=== PATIENT | male | born 1950 | race Caucasian/White ===

== ENCOUNTER → 2017-04-07 | Outpatient (CLI) | payer MEDICARE, BC ==
--- NOTE | 2017-04-07 17:41 | US ---
EXAMINATION TYPE: US kidneys/renal and bladder DATE OF EXAM: 04/07/2017 COMPARISON: US 2011 CLINICAL HISTORY: R10.9 Unspecified abd pain; Intermittent right flank pain; microscopic hematuria pe r patient. EXAM MEASUREMENTS: Right Kidney: 11.7 x 6.4 x 5.6 cm Left Kidney: 11.4 x 5.5 x 6.4 cm Post Void Residual Volume: 78.8 mL Right Kidney: mid medial hypoechoic area, possibly cystic with posterior enhancement =2.5 x 1.7 x 1.8 cm; lower pole cortical cyst = 1.0 x 0.7 x 0.7cm. Left Kidney: lobular cortex with hyperechoic oval mass noted mid cortex ( possible angiomyolipoma) = 2.1 x 2.1 x 1.9cm; lower pole cortical cyst = 1.2 x 1.0 x 0.9cm. Bladder: wnl Bilateral Jets seen: Yes Normal Post Void Residual: no, as is > 50.0ml IMPRESSION: 1. Hyperechoic lesion left kidney could reflect angiomyolipoma however consider CT correlation. 2. Renal cystic lesions.
== END | disposition home or self-care (01) ==
LOC: RADUSWWP 16:07
PROVIDERS: ATTEND Family Medicine
DX: N28.9 Disorder of kidney and ureter, unspecified (principal); R10.9 Unspecified abdominal pain
CPT/HCPCS: 76770

== ENCOUNTER → 2017-04-15 | Outpatient (CLI) | payer MEDICARE, BC ==
--- NOTE | 2017-04-15 08:41 | CT ---
EXAMINATION TYPE: CT abdomen wo con DATE OF EXAM: 04/15/2017 COMPARISON: Correlation ultrasound kidneys 04/07/2017 HISTORY: 66-year-old male with right flank pain, abn US TECHNIQUE: Contiguous axial scanning of the abdomen without IV contrast. Coronal and sagittal reconst ructions performed. CT DLP: 606 mGycm Automated exposure control for dose reduction was used. FINDINGS: Heart is normal size without pericardial effusion. Coronary vessel calcifications are present in buffy rkable for coronary artery disease. Small hiatal hernia. Lung bases clear without pleural effusion. Noncontrast appearance of the liver, adrenal glands, spleen, and pancreas show no gross anomaly. Ther e is some fat interposed at the uncinate process incidentally noted. Lobulated contour to both kidneys. The dominant mid pole cyst within the right kidney seen on ultraso und is not clearly demonstrated on noncontrast CT. Within the left kidney, there is an exophytic 1.7 cm lesions showing fluid attenuation posterior uppe r to midpole, suspected cyst and a subcentimeter hypodensity at the lower pole, also likely a cyst. I ndeterminate 2.0 cm soft tissue density lesion lateral midpole likely corresponds to the question ech ogenic lesion on ultrasound. No internal fat density is seen to suggest a fatty AML. No dilated small bowel, free fluid, or free air. No mesenteric or retroperitoneal lymphadenopathy. Small umbilical hernia. Normal appendix. Colonic diverticulosis with mild to moderate overall stool burden. Mild atherosclerotic calcifications within the infrarenal abdominal aorta without aneurysm. Bones: Degenerative changes at the SI joints and lower lumbar spine. Endplate spondylosis at the lowe r thoracic spine and thoracolumbar junction. IMPRESSION: 1. A 2.0 CM SOFT TISSUE DENSITY LESION MID LEFT KIDNEY SEEMS TO CORRESPOND TO THE QUESTIONED ECHOGENI C LESION ON ULTRASOUND. DIFFERENTIAL CONSIDERATIONS INCLUDE COMPLICATED CYST, LIPID POOR AML, AND RCC . FURTHER EVALUATION WITH KIDNEY MRI RECOMMENDED. 2. MRI CAN CONCURRENTLY EVALUATE THE RIGHT MIDPOLE LESION SEEN ON ULTRASOUND. THIS HAS NO CLEAR CORRE LATE ON NONCONTRAST CT. 2. COLONIC DIVERTICULOSIS, SMALL HIATAL HERNIA, AND SMALL FATTY UMBILICAL HERNIA.
== END | disposition home or self-care (01) ==
LOC: RADCTMAIN 07:11
PROVIDERS: ATTEND Urology
DX: K57.30 Diverticulosis of large intestine without perforation or abscess without bleeding (principal); N28.89 Other specified disorders of kidney and ureter; K44.9 Diaphragmatic hernia without obstruction or gangrene; K42.9 Umbilical hernia without obstruction or gangrene
CPT/HCPCS: 74150

== ENCOUNTER → 2017-05-03 | Outpatient (CLI) | payer MEDICARE, BC ==
--- NOTE | 2017-05-03 10:39 | XR ---
EXAMINATION TYPE: XR chest 2V DATE OF EXAM: 05/03/2017 COMPARISON: 07/28/1711 HISTORY: Shortness of breath TECHNIQUE: Frontal and lateral views of the chest are obtained. FINDINGS: Scattered senescent parenchymal changes noted. Hyperinflation compatible with COPD. No evidence for infiltrate. No evidence for atelectasis. Heart size is stable. Mediastinal structures are stable and grossly unremarkable. No evidence for hilar prominence. Degenerative changes dorsal spine. IMPRESSION: 1. No evidence for acute pulmonary disease.
== END ==
LOC: RADXRMAIN 09:46
PROVIDERS: ATTEND Otolaryngology
DX: R05 Cough (principal)
CPT/HCPCS: 71020

== ENCOUNTER → 2017-05-12 | Outpatient (CLI) | payer MEDICARE, BC ==
--- NOTE | 2017-05-12 08:55 | CT ---
EXAMINATION TYPE: CT sinus wo con DATE OF EXAM: 05/12/2017 COMPARISON: NONE HISTORY: Chronic sinusitis CT DLP: [address] of the paranasal sinuses was performed in the axial and coronal planes. Bone and soft tissue settings are submitted. The paranasal sinuses demonstrate normal aeration and development. There is mucosal thickening involving the maxillary sinuses right greater than left, scattered ethmoi d air cells, right frontal sinus and sphenoid sinus. No air-fluid levels are detected. The osteal meatal units are patent bilaterally. The nasal septum is deviated from right to left. Incidental right-sided middle turbinate sylvia bullo sa noted. No bony destructive changes are seen within the field of view. IMPRESSION: 1. Mild chronic pansinusitis. 2. Nasal septal deviation.
== END ==
LOC: RADCTMAIN 08:35
PROVIDERS: ATTEND Otolaryngology
DX: J32.4 Chronic pansinusitis (principal); J34.2 Deviated nasal septum; J38.01 Paralysis of vocal cords and larynx, unilateral
CPT/HCPCS: 70486

== ENCOUNTER → 2017-05-20 | Outpatient (CLI) | payer MEDICARE, BC ==
[2017-05-20 13:50] LABS: Non-African American GFR(MDRD) >60 (>60 ml/min/1.73 sqM)
== END | disposition home or self-care (01) ==
LOC: LABWHC1 13:17
PROVIDERS: ATTEND Urology
DX: D41.02 Neoplasm of uncertain behavior of left kidney (principal)
CPT/HCPCS: 36415; 82565

== ENCOUNTER → 2017-05-21 | Outpatient (CLI) | payer MEDICARE, BC ==
--- NOTE | 2017-05-21 15:40 | MR ---
EXAMINATION TYPE: MR kidney wo/w con DATE OF EXAM: 05/21/2017 COMPARISON: CT 04/15/2017 and ultrasound 04/07/2017 HISTORY: 67-year-old male with left renal mass Technique: Multiplanar, multisequence images of the abdomen were obtained before and after administra tion of 20 mL intravenous MultiHance gadolinium contrast. FINDINGS: By 04/07/2017 ultrasound: Hypoechoic right mid pole renal lesion 2.5 cm. Echogenic left midpole renal lesion 2.1 cm. Current MRI: Tiny hiatal hernia. Opposed phase T1 weighted sequences show no evidence for fatty infiltration of the liver. Gallbladder, adrenal glands, spleen, and pancreas show no gross abnormality. There is an 8 mm island of fat in the pancreatic head region. No upper abdominal ascites, lymphadenopathy, or gross bowel abnormality. Mild scattered colonic diver ticuli are present. Scattered small cortical cyst on both sides measuring up to 1.6 cm in the posterior lower pole left k idney. At the right midpole, no lesion is identified. There is lobulated bilateral renal cortices which may have simulated a lesion. At the left midpole, there is a heterogeneous T2 iso to hypointense and T1 hypointense lesion measuri ng 2.2 cm. There is some internal curvilinear high T2 signal present. Postcontrast sequences show het erogeneous internal enhancement. Small fatty umbilical hernia. IMPRESSION: Solid, heterogeneously enhancing 2.2 cm left midpole renal mass. This lesion does not show any macros copic fat or homogeneous hypervascularity to suggest either a conventional AML or lipid poor AML. Hardik ar cell RCC cannot be excluded on the basis of this exam.
== END | disposition home or self-care (01) ==
LOC: RADMRIMAIN 12:29
PROVIDERS: ATTEND Urology
DX: N28.89 Other specified disorders of kidney and ureter (principal); D41.02 Neoplasm of uncertain behavior of left kidney
CPT/HCPCS: 74183; A9577

== ENCOUNTER 2017-07-01 09:34 | Day surgery (SDC) | payer MEDICARE, BC ==
[2017-06-24 13:47] VITALS: BMI 29.2
[~2017-07-01 09:34] MED LIST: DEXAMETHASONE SOD PHOSPHATE 10 MG/ML 1 ML VIAL IV ONE; DEXAMETHASONE SOD PHOSPHATE 4 MG/ML 1 ML VIAL IV ONE; FAMOTIDINE 20 MG/2 ML VIAL IV ONE; LIDOCAINE 1% 20 ML VIAL (10MG/ML) FOR IV START INTRADERMA PRN; ONDANSETRON 4 MG/2 ML VIAL IVP ONE; SCOPOLAMINE 1.5MG/72HR PATCH TRANSDERM ONE; ceFAZolin 2 GM in SODIUM CHLORIDE 0.9% 100 ML IVPB ONE
[2017-07-01] MEDS: OXYMETAZOLINE 0.05% NASL SPRAY 1 SPRAY BOTTLE NASAL ONE ×6 (10:44→11:07)
[2017-07-01] MEDS: LACTATED RINGERS 1,000 ML IV SCH ×2 (10:57→11:41)
[2017-07-01 11:00] LABS: Glucose,Whole Blood 122 mg/dL (75-99)
[2017-07-01] MEDS ORDERED: EPINEPHrine 1 MG/ML (MDV) 30 ML VIAL SQ ONE ×2 (11:01)
[2017-07-01 11:09] LABS: Basophils % (A) 0 %; CH 30.9; Eosinophils # (A) 0.1 k/uL (0-0.7); Eosinophils % (A) 1 %; HCT 42.7 % (39.0-53.0); HDW 2.83; HGB 15.4 gm/dL (13.0-17.5); Luc # (Auto) 0.09; Luc % (Auto) 1; Lymphocytes # (A) 1.4 k/uL (1.0-4.8); Lymphocytes % (A) 11 %; MCH 31.1 pg (25.0-35.0); MCV 86.2 fL (80.0-100.0); Mean Platelet Volume 6.9; Monocytes # (A) 0.4 k/uL (0-1.0); Monocytes % (A) 4 %; Neutrophils # (A) 9.9 k/uL (1.3-7.7); Neutrophils % (A) 83 %; RBC 4.95 m/uL (4.30-5.90); RDW 13.1 % (11.5-15.5); WBC 11.9 k/uL (3.8-10.6); WBC (Perox) 10.89
[2017-07-01 11:22] LABS: Anion Gap 12 mmol/L; Blood Urea Nitrogen 18 mg/dL (9-20); Calcium 9.6 mg/dL (8.4-10.2); Carbon Dioxide 29 mmol/L (22-30); Chloride 99 mmol/L (98-107); Glucose 121 mg/dL (74-99); Non-African American GFR(MDRD) >60 (>60 ml/min/1.73 sqM); Potassium 3.1 mmol/L (3.5-5.1); Sodium 140 mmol/L (137-145)
[2017-07-01] MEDS ORDERED: DEXAMETHASONE SOD PHOS (MDV) 100 MG/10 ML VIAL ONE (11:41)
[2017-07-01] MEDS ORDERED: PROPOFOL 10 MG/ML 20 ML VIAL IV ONE (11:41)
[2017-07-01] MEDS ORDERED: LIDOCAINE 1% INJ 10MG/ML (20 ML MDV) ONE (11:41)
[2017-07-01] MEDS ORDERED: MIDAZOLAM 2 MG/2 ML VIAL ONE (11:41)
[2017-07-01] MEDS ORDERED: SUCCINYLCHOLINE CHLORIDE 100 MG/5 ML SYR IV ONE (11:41)
[2017-07-01] MEDS ORDERED: fentaNYL (PF) 50 MCG/ML 2 ML AMP ONE (11:41)
[2017-07-01] MEDS ORDERED: LIDOCAINE 2%-EPI 1:100,000 20 ML VIAL SQ ONE (12:17)
[2017-07-01] MEDS ORDERED: BUPIVACAINE (PF) 0.25% 30 ML VIAL SQ ONE (12:18)
[2017-07-01 13:26] VITALS: RESP 16; TEMP 97.1
--- NOTE | 2017-07-01 13:44 | P.OP ---
Date of Procedure: 07/01/17 Preoperative Diagnosis: Hoarseness Chronic pansinusitis Deviated nasal septum Right middle turbinate sylvia bullosa Postoperative Diagnosis: Same Procedure(s) Performed: Direct microscopic laryngoscopy and biopsy Bilateral functional endoscopic sinus surgery Resection of right middle turbinate sylvia bullosa Septoplasty Implants: Anesthesia: GETA Surgeon: Julio Cesar Timmons Estimated Blood Loss (ml): 20 Pathology: other (Right vocal cord and sinonasal) Condition: stable Disposition: PACU Indications for Procedure: This patient presented to the office today after a video stroboscopy with persistent hoarseness. The patient has had previous radiation therapy. Is been on multiple antibiotics is a chronic sinusitis facial pain and pressure anosmia congestion discolored drainage CAT scan shows chronic pansinusitis with the severe left septal deviation and large right sylvia bullosa. Evaluation of the larynx under microscopic visualization was recommended. Bilateral functional endoscopic sinus surgery and septoplasty was also recommended in light of this continued sinus issues along with resection of the right middle turbinate sylvia bullosa Operative Findings: Patient was found have a massive right middle turbinate sylvia bullosa a deviated nasal septum to the left that was obstructive and sinus disease and all sinuses. Vocal cord examination reveals evidence of previous radiation therapy and chronic laryngitis. The patient was found to have a large vessel on the right posterior vocal cord there was problematic. Description of Procedure: Preoperatively the patient had her consent reviewed. All risks, benefits, and alternative therapies were discussed and all questions were answered. The patient was informed of the procedure and a confirmatory fashion and was in agreement to proceed forward. In the operating room a timeout was performed and all issues were reviewed with the operating room staff. The patient underwent a general inhalation anesthetic and intubated by the department of anesthesia and also monitored throughout the entire case by the department of anesthesia. A functioning IV line was in place. This patient was intubated with a #5 REAL ESTATE ADMINISTRATOR tube. Tooth guard was placed in a Jako laryngoscope was placed into the patient's mouth with care to avoid any trauma to the lips teeth gums and tongue. The entire Aarti and hypopharynx was evaluated including the base of tongue Raleigh cords vallecula lateral pharynx hypopharynx postcricoid space ventral etc. It was placed on suspension on a Lewy and the vocal cords were visualized. There was evidence of chronic laryngitis evidence of postnasal drainage there is also evidence of a large vessel the posterior vocal surface which was removed. Patient tolerated this well no other pathology was noted scope and instrumentation was removed. The patient was positioned in the supine position with slight reverse Trendelenburg. Preoperatively she had Afrin nasal spray. We then injected the septum, lateral nasal wall, turbinates with lidocaine 1% with epinephrine 1 100, 000. Approximately 10 minutes were allowed wait for full vasoconstrictive effects to take place. A caudal incision was made over the caudal portion of the left septum down to the mucoperichondrium. A mucoperichondrial flap was developed with use of tunnels inferiorly and superiorly. We identified the deviation and with use of crosshatching incisions and removal of some redundant strips of septal cartilage , the septum was placed back in the midline in excellent position relieving this patient of this deviated nasal septum. We closed the incision with a 40 rapid Vicryl and a quilting stitch was used to reapproximate the septal flap. The septum was corrected and a swing door type fashion. The septum was sutured fixated to the vomer area and groove with use of a 40 rapid Vicryl. Attention was then paid to the middle turbinates which were brought medial. The uncinate process was visualized and reflected forward with a Irving probe. With the use of an endoscope utilizing 0 30 and 90 we perform this procedure and utilize this endoscope on a video camera throughout the entire procedure. This was with use of a Cavanaugh jennie scope. We then took down the uncinate process with a pediatric backbiter and a microdebrider. I also resected the right middle turbinate sylvia bullosa laterally which was quite large and obstructive. We did this with a microdebrider and a straight boss. After the uncinate process was removed the maxillary sinuses were opened widely with use of a straight boss. We open the maxillary sinuses widely and into the maxillary sinuses with endoscopic visualization. Diseased tissue was removed from the maxillary sinuses bilaterally and the sinuses were opened bilaterally. After the maxillary sinuses were opened and diseased tissue was removed attention was then paid to the ethmoid bulla. From a medial to lateral position we took down the ethmoid bulla. We identified the roof of the maxillary sinus and the inferior attachment of the superior turbinate and then took down the basal lamella and into the posterior ethmoid air cells. We did a total ethmoidectomy with use of an up-biting boss. Excellent results were obtained. Diseased tissue was found in the ethmoid sinuses and removed. We then entered the sphenoid sinus underneath the inferior attachment of the superior turbinate. The sphenoid sinus was opened with the microdebrider and diseased tissue was removed from each sphenoid sinus. This was also done with use of endoscopic visualization. Attention was then paid to the frontal sinus where the frontal sinuses were opened with balloon assistance. We entered the frontal sinuses bilaterally we explored the frontal sinuses bilaterally, and we remove diseased tissue from the frontal sinuses bilaterally. After all sinuses were opened and all sinuses explored and all sinuses had diseased tissue removed , Xerogel was placed under each middle turbinate to prevent lateralization. Excellent hemostasis was obtained throughout the entire case and very low blood was noted. The skull base and orbital snowden looked good. We reinspected the sinonasal region and no bleeding was encountered. The patient was then taken to postanesthesia recovery in excellent condition. A follow-up is scheduled for next week. The patient is to contact me if there is any problems or issues. Bilateral nasal packing was placed
[2017-07-01] MEDS: HYDROmorphone 1 MG/ML 1 ML SYRINGE IVP PRN ×4 (13:59→14:53)
[2017-07-01] MEDS: ENALAPRILAT 1.25 MG/ML 1 ML VIAL IVP ONE ×2 (14:02→14:31)
[2017-07-01] MEDS: LABETALOL SYRINGE 5 MG/ML IVP ONE ×3 (14:03→14:45)
[2017-07-01] MEDS ORDERED: HYDROcodone/APAP 5-325MG 1 EACH TAB PO ONE (15:37)
[2017-07-01 16:38] VITALS: BP 128/81; PULSE 64
== END 2017-07-01 17:10 | disposition home or self-care (01) ==
LOC: OR 09:34
PROVIDERS: ATTEND Otolaryngology
DX: J32.4 Chronic pansinusitis (principal); J34.2 Deviated nasal septum; R43.0 Anosmia; R49.0 Dysphonia; Z87.891 Personal history of nicotine dependence; Z92.3 Personal history of irradiation; K21.9 Gastro-esophageal reflux disease without esophagitis; E78.00 Pure hypercholesterolemia, unspecified; I10 Essential (primary) hypertension; Z85.21 Personal history of malignant neoplasm of larynx; Z79.52 Long term (current) use of systemic steroids; Z79.899 Other long term (current) drug therapy; E78.5 Hyperlipidemia, unspecified
CPT/HCPCS: 93005; 88305; 80048; 85025; 88300; 30520; 31267; 31255; 31288; 31276; 31535; J0171; J2250; J0690; J2405; J2001; J3010; J1170; J1100; J0330; J2704

== ENCOUNTER → 2018-02-10 | Outpatient (CLI) | payer MEDICARE, BC ==
[2018-02-10 08:30] LABS: HCT 39.9 % (39.0-53.0); HGB 14.1 gm/dL (13.0-17.5); MCH 29.8 pg (25.0-35.0); MCHC 35.3 g/dL (31.0-37.0); MCV 84.5 fL (80.0-100.0); Mean Platelet Volume 7.3; Platelet Count 291 k/uL (150-450); RBC 4.72 m/uL (4.30-5.90); RDW 13.2 % (11.5-15.5)
[2018-02-10 08:56] LABS: Albumin 4.6 g/dL (3.5-5.0); Calcium 9.9 mg/dL (8.4-10.2); Potassium 3.4 mmol/L (3.5-5.1); Total Bilirubin 0.4 mg/dL (0.2-1.3); Total Protein 7.5 g/dL (6.3-8.2)
== END | disposition home or self-care (01) ==
LOC: LABWHC1 08:06
PROVIDERS: ATTEND Urology
DX: C64.2 Malignant neoplasm of left kidney, except renal pelvis (principal)
CPT/HCPCS: 36415; 80053; 85027

== ENCOUNTER → 2018-04-11 | Outpatient (CLI) | payer MEDICARE, BC ==
[2018-04-11 10:22] LABS: ALT 49 U/L (21-72); AST 33 U/L (17-59); Cholesterol 188 mg/dL (<200); HDL Cholesterol 47 mg/dL (40-60); LDL Cholesterol,Calculated 120 mg/dL (0-99); Triglycerides 103 mg/dL (<150)
== END | disposition home or self-care (01) ==
LOC: LABWHC1 09:03
PROVIDERS: ATTEND Internal Medicine Cardiovascular Disease
DX: E78.2 Mixed hyperlipidemia (principal)
CPT/HCPCS: 36415; 80061; 84450; 84460

== ENCOUNTER → 2018-06-24 | Outpatient (CLI) | payer MEDICARE, BC ==
[2018-06-24 08:55] LABS: Basophils % (A) 1 %; Eosinophils # (A) 0.2 k/uL (0-0.7); Eosinophils % (A) 3 %; HCT 42.8 % (39.0-53.0); HGB 14.6 gm/dL (13.0-17.5); Lymphocytes # (A) 1.9 k/uL (1.0-4.8); Lymphocytes % (A) 25 %; MCH 29.3 pg (25.0-35.0); MCHC 34.2 g/dL (31.0-37.0); MCV 85.6 fL (80.0-100.0); Mean Platelet Volume 7.1; Monocytes # (A) 0.5 k/uL (0-1.0); Monocytes % (A) 6 %; Neutrophils # (A) 4.8 k/uL (1.3-7.7); Neutrophils % (A) 63 %; Platelet Count 275 k/uL (150-450); RDW 12.9 % (11.5-15.5); WBC 7.6 k/uL (3.8-10.6)
[2018-06-24 09:55] LABS: Albumin 4.5 g/dL (3.5-5.0); Calcium 9.9 mg/dL (8.4-10.2); Potassium 3.4 mmol/L (3.5-5.1); Total Bilirubin 0.9 mg/dL (0.2-1.3); Total Protein 7.6 g/dL (6.3-8.2)
[2018-06-24 10:25] LABS: PSA Annual Screen 3.96 ng/mL (0.00-4.00)
[2018-06-24 19:46] LABS: Hemoglobin A1C 6.1 % (4.0-6.0)
== END | disposition home or self-care (01) ==
LOC: LABWHC1 08:33
PROVIDERS: ATTEND Family Medicine
DX: Z00.01 Encounter for general adult medical examination with abnormal findings (principal); E78.5 Hyperlipidemia, unspecified; Z12.5 Encounter for screening for malignant neoplasm of prostate
CPT/HCPCS: 80053; 82550; 85025; 83036; 36415; G0103

== ENCOUNTER → 2018-09-23 | Outpatient (CLI) | payer MEDICARE, BC ==
[2018-09-23 15:26] LABS: HCT 41.3 % (39.0-53.0); HGB 14.2 gm/dL (13.0-17.5); MCH 30.1 pg (25.0-35.0); MCHC 34.5 g/dL (31.0-37.0); MCV 87.2 fL (80.0-100.0); Mean Platelet Volume 6.9; Platelet Count 325 k/uL (150-450); RBC 4.74 m/uL (4.30-5.90); RDW 12.4 % (11.5-15.5); WBC 9.5 k/uL (3.8-10.6)
[2018-09-24 02:53] LABS: Albumin 4.9 g/dL (3.80-4.90); Albumin/Globulin Ratio 2.04 (1.20-2.10); Anion Gap 12.8 mmol/L (4.00-12.00); Calcium 10.2 mg/dL (8.7-10.3); Carbon Dioxide 27.2 mmol/L (21.6-31.8); Globulin 2.4 g/dL (2.1-3.7); Potassium 3.1 mmol/L (3.5-5.5); Total Bilirubin 0.8 mg/dL (0.3-1.2); Total Protein 7.3 g/dL (6.2-8.2)
[2018-09-27 04:57] LABS: Hemoglobin A1C 6.1 % (4.0-6.0)
== END | disposition home or self-care (01) ==
LOC: LABWHC1 15:06
PROVIDERS: ATTEND Urology
DX: C64.9 Malignant neoplasm of unspecified kidney, except renal pelvis (principal); R97.20 Elevated prostate specific antigen [PSA]
CPT/HCPCS: 36415; 80053; 83036; 84153; 85027

== ENCOUNTER → 2018-09-30 | Outpatient (CLI) | payer MEDICARE, BC ==
--- NOTE | 2018-09-30 17:09 | US ---
EXAMINATION TYPE: US kidneys/renal and bladder DATE OF EXAM: 09/30/2018 COMPARISON: MRI kidney May 21, 2017. CT abdomen April 15, 2017. CLINICAL HISTORY: Renal CA. Left renal CA resected 2017 per patient. EXAM MEASUREMENTS: Right Kidney: 11.2 x 7.2 x 5.4cm Left Kidney: 11.1 x 5.3 x 5.7cm Post Void Residual Volume: 38.7ml Right Kidney: lobular cortex is seen; multiple renal cysts are seen with largest at inferior cortex = 1.0 x 0.8 x 0.7cm; small hypoechoic fluid area seen laterally adjacent to cortex may be sonographic sweat sign and suggests renal failure. Left Kidney: hyperechoic areas seen mid cortex may be scar tissue from 2017 Renal Cell CA resection; inferior pole simple cyst = 1.4 x 1.1 x 0.8cm Bladder: wnl Bilateral Jets seen: yes Normal Post Void Residual: yes There is no evidence for hydronephrosis at this point in time. Lobular cortex right kidney is redemon strated. A few tiny simple appearing cysts are redemonstrated bilaterally. Focal irregularity with sh adowing laterally likely reflects scarring mid to lower pole level left kidney at area of prior enhan cing mass. No nephrolithiasis is seen. The urinary bladder is well-distended. Bilateral ureteral je ts are seen. Small amount of residual urine is present after voiding, calculated volume is just under 40 cc. IMPRESSION: No suspicious new solid or cystic masses in either kidney on ultrasound images saved.
== END ==
LOC: RADUSWWP 16:08
PROVIDERS: ATTEND Urology
DX: C64.9 Malignant neoplasm of unspecified kidney, except renal pelvis (principal)
CPT/HCPCS: 76770

== ENCOUNTER → 2018-10-14 | Outpatient (CLI) | payer MEDICARE, BC ==
[2018-10-14 17:25] LABS: Albumin 4.8 g/dL (3.80-4.90); Albumin/Globulin Ratio 2.18 (1.20-2.10); Anion Gap 11.5 mmol/L (4.00-12.00); Calcium 9.9 mg/dL (8.7-10.3); Carbon Dioxide 29.5 mmol/L (21.6-31.8); Globulin 2.2 g/dL (2.1-3.7); LDL Cholesterol,Calculated 88.8 mg/dL (0.0-131.0); Potassium 3.2 mmol/L (3.5-5.5); Total Bilirubin 0.9 mg/dL (0.2-1.2); Uric Acid 10.8 mg/dL (3.7-8.7); VLDL Calculation 19.2 mg/dL (5.00-40.00)
== END ==
LOC: LABWHC1 09:19
PROVIDERS: ATTEND Nurse Practitioner Adult Health
DX: E78.5 Hyperlipidemia, unspecified (principal); M10.9 Gout, unspecified; R73.9 Hyperglycemia, unspecified
CPT/HCPCS: 36415; 80053; 80061; 82550; 84550

== ENCOUNTER → 2019-07-05 | Outpatient (CLI) | payer MEDICARE, BC ==
[2019-07-05 08:31] LABS: Basophils # (A) 0.1 k/uL (0-0.2); Basophils % (A) 1 %; Eosinophils # (A) 0.1 k/uL (0-0.7); Eosinophils % (A) 2 %; HGB 14.8 gm/dL (13.0-17.5); Lymphocytes % (A) 27 %; MCH 30.2 pg (25.0-35.0); MCHC 33.8 g/dL (31.0-37.0); MCV 89.4 fL (80.0-100.0); Mean Platelet Volume 7.4; Monocytes # (A) 0.5 k/uL (0-1.0); Monocytes % (A) 7 %; Neutrophils # (A) 4.4 k/uL (1.3-7.7); Neutrophils % (A) 61 %; Platelet Count 331 k/uL (150-450); RBC 4.92 m/uL (4.30-5.90); RDW 14.3 % (11.5-15.5); WBC 7.3 k/uL (3.8-10.6)
[2019-07-05 16:17] LABS: T4, Free (Free Thyroxine) 1.4 ng/dL (0.80-1.80)
[2019-07-05 16:37] LABS: African American GFR (CKD) 71.6 (60.0-200.0); Albumin/Globulin Ratio 2.27 (1.60-3.17); BUN/Creat Ratio 13.33 Ratio (12.00-20.00); Calcium 10.3 mg/dL (8.7-10.3); Chol/HDL Ratio 3.65; Globulin 2.2 g/dL (1.6-3.3); LDL Cholesterol,Calculated 106.8 mg/dL (0.0-131.0); Potassium 4.4 mmol/L (3.5-5.5); Total Bilirubin 0.8 mg/dL (0.2-1.2); Total Protein 7.2 g/dL (6.2-8.2); Uric Acid 7.5 mg/dL (3.7-8.7); VLDL Calculation 23.2 mg/dL (5.00-40.00)
== END | disposition home or self-care (01) ==
LOC: LABWHC1 07:44
PROVIDERS: ATTEND Nurse Practitioner Adult Health
DX: I10 Essential (primary) hypertension (principal); E78.5 Hyperlipidemia, unspecified; M10.9 Gout, unspecified
CPT/HCPCS: 36415; 80053; 80061; 82550; 84439; 84443; 84550; 85025

== ENCOUNTER → 2019-10-17 | Outpatient (CLI) | payer MEDICARE, BC ==
[2019-10-17 08:33] LABS: HCT 44.3 % (39.0-53.0); HGB 15.2 gm/dL (13.0-17.5); MCH 30.6 pg (25.0-35.0); MCHC 34.4 g/dL (31.0-37.0); MCV 88.8 fL (80.0-100.0); Mean Platelet Volume 7.5; Platelet Count 282 k/uL (150-450); RBC 4.99 m/uL (4.30-5.90); RDW 12.5 % (11.5-15.5); WBC 7.4 k/uL (3.8-10.6)
[2019-10-17 08:41] LABS: Albumin 5.1 g/dL (3.5-5.0); Potassium 3.7 mmol/L (3.5-5.1); Total Bilirubin 0.9 mg/dL (0.2-1.3); Total Protein 8.4 g/dL (6.3-8.2)
--- NOTE | 2019-10-17 11:00 | CT ---
EXAMINATION TYPE: CT abdomen wo/w con DATE OF EXAM: 10/17/2019 COMPARISON: Renal ultrasound dated 09/30/2018 and MRI of the kidneys dated 05/21/2017. HISTORY: Surgically resected left renal cell carcinoma in 2017. CT DLP: 1004.7 mGycm Automated exposure control for dose reduction was used. TECHNIQUE: Helical acquisition of images was performed from the lung bases through the top of iliac crest to include entire abdomen. CONTRAST: Performed with Oral Contrast and without and with IV Contrast, patient injected with 80 mL of Isovue 300. FINDINGS: LUNG BASES: No significant abnormality is appreciated. LIVER/GB: No cholelithiasis. PANCREAS: Again there is focal fatty infiltration in the uncinate process as seen on the examination of 2017, similar in appearance. SPLEEN: No significant abnormality is seen. ADRENALS: No significant abnormality is seen. KIDNEYS: Unenhanced images demonstrate surgical sutures along the left renal cortical margin at the m id pole. There is some fat perinephric fat stranding that is seen extending to Gerota's fascia howeve r there is no nodularity seen no abnormal enhancement. There is some central fat that appears encapsu lated on postcontrast image 36, possible perinephric fat stranding or focal fat necrosis. No fascial plane thickening. Small vessel is seen just cranial to this on postcontrast image 35. On delayed imag es there is subtle decreased enhancement of the cortex adjacent to the surgical sutures such as on im age 35 and 34. This may represent focal scarring and abnormal renal function secondary to resection. No abnormal enhancement or focal mass is seen. Emanating from the medial left upper pole there is a fluid attenuated 1.5 cm left renal cyst with no significant enhancement. Punctate 2 mm, too small to accurately characterize cortical renal lesion is seen in the left on postcontrast image 29. From the lower pole there is a 1.[address] No hydronephrosis. On the right there is an upper pole too small to accurately characterize lesion on image 24 and secon d similar lesion on image 32 as well as a renal cyst of the lower pole on image 38 measuring 1.1 cm. Lastly a too small to accurately characterize lesion is seen of the inferior pole on image 41. No hyd ronephrosis on the right. There is a lobulated contour the bilateral kidneys. No nephrolithiasis of e ither kidney. BOWEL: Few colonic diverticula without pericolonic fat stranding. Moderate degree colonic fecal felipe is. No dilated large or small bowel. Appendix is partially visualized and within normal limits. LYMPH NODES: No greater than 1 cm short axis lymph node in the abdomen. OSSEOUS STRUCTURES: No new suspicious osseous lesion. Mild to moderate degenerative changes of the s pine. FREE AIR: No free air is visualized. OTHER: Moderate calcific atheromatous changes seen in the abdominal aorta and its branches. Very smal l periumbilical fat filled hernia on image 47. IMPRESSION: 1. SURGICAL RESECTION OF THE LEFT MIDPOLE RENAL CELL CARCINOMA. NO SUSPICIOUS FINDINGS TO SUGGEST LOC AL RECURRENCE AT THIS TIME. NO NEW ADENOPATHY NOR SUSPICIOUS OSSEOUS LESIONS. 2. BILATERAL RENAL LESIONS, SOME OF WHICH ARE TOO SMALL TO ACCURATELY CHARACTERIZE AND OTHERS THAT RE PRESENT SIMPLE CYSTS.
== END | disposition home or self-care (01) ==
LOC: RADCTMAIN 07:56
PROVIDERS: ATTEND Urology
DX: C64.9 Malignant neoplasm of unspecified kidney, except renal pelvis (principal); N28.9 Disorder of kidney and ureter, unspecified; N28.1 Cyst of kidney, acquired
CPT/HCPCS: 80053; 85027; 74170; 36415; Q9967 ×2

== ENCOUNTER → 2020-06-19 | Outpatient (CLI) | payer MEDICARE, BC ==
[2020-06-19 16:55] LABS: Chol/HDL Ratio 3.16; LDL Cholesterol,Calculated 86.6 mg/dL (0.0-131.0); VLDL Calculation 19.4 mg/dL (5.00-40.00)
== END | disposition home or self-care (01) ==
LOC: LABWHC1 07:20
PROVIDERS: ATTEND Internal Medicine Cardiovascular Disease
DX: E78.2 Mixed hyperlipidemia (principal)
CPT/HCPCS: 36415; 80061; 84450; 84460

== ENCOUNTER → 2020-08-09 | Outpatient (CLI) | payer MEDICARE, BC ==
[2020-08-09 11:36] LABS: HCT 41.9 % (39.0-53.0); HGB 13.7 gm/dL (13.0-17.5); MCH 29.7 pg (25.0-35.0); MCHC 32.7 g/dL (31.0-37.0); MCV 90.8 fL (80.0-100.0); Mean Platelet Volume 7.2; Platelet Count 317 k/uL (150-450); RBC 4.61 m/uL (4.30-5.90); RDW 12.5 % (11.5-15.5); WBC 7.5 k/uL (3.8-10.6)
[2020-08-09 22:22] LABS: African American GFR (CKD) 64.5 (60.0-200.0); Albumin 4.9 g/dL (3.80-4.90); Albumin/Globulin Ratio 2.33 (1.60-3.17); Anion Gap 11.8 mmol/L (4.00-12.00); BUN/Creat Ratio 16.15 Ratio (12.00-20.00); Calcium 10.3 mg/dL (8.7-10.3); Carbon Dioxide 27.2 mmol/L (21.6-31.8); Globulin 2.1 g/dL (1.6-3.3); Non-African American GFR(CKD) 55.7 (60.0-200.0); Potassium 4.3 mmol/L (3.5-5.5)
[2020-08-09 22:30] LABS: Prostate Specific Antigen 4.5 ng/mL (0.0-4.5)
== END | disposition home or self-care (01) ==
LOC: LABWHC1 09:24
PROVIDERS: ATTEND Urology
DX: C64.9 Malignant neoplasm of unspecified kidney, except renal pelvis (principal); R97.20 Elevated prostate specific antigen [PSA]
CPT/HCPCS: 36415; 80053; 84153; 85027

== ENCOUNTER → 2020-08-16 | Outpatient (CLI) | payer MEDICARE, BC ==
--- NOTE | 2020-08-16 15:24 | CT ---
EXAMINATION TYPE: CT chest abdomen w con DATE OF EXAM: 08/16/2020 COMPARISON: CT abdomen 10/17/2019, 04/15/2017. HISTORY: Renal CA CT DLP: 750.2 mGycm. Automated Exposure Control for Dose Reduction was Utilized. CONTRAST: CT scan of the thorax and abdomen is performed with IV Contrast, patient injected with 100 mL of Isov ue 300. FINDINGS: LUNGS: Within the left upper lobe apex there is a 2.1 x 4.1 x 4.0 cm area of somewhat linear groundgl ass opacity associated with mild bronchiectasis, and bronchiectasis versus cystic change at the super ior aspect (4:9). Several other areas of groundglass opacities are seen, measuring up to 7 mm in the left upper lobe apex (4:6, 8:53), 11 mm in the right upper lobe (4:14), and 6 mm in the right lower l obe (4:39). There is no pleural effusion or pneumothorax seen. The tracheobronchial tree is patent. MEDIASTINUM/SOFT TISSUES: Right hilar lymph nodes measure up to 12 x 15 mm (3:27). No axillary or med iastinal lymphadenopathy greater than 1 cm. Cardiac size is normal. Calcified coronary artery disease . No pericardial effusion. No thoracic aortic aneurysm. LIVER: Normal. BILIARY SYSTEM: Normal. PANCREAS: Normal. SPLEEN: Normal. ADRENALS: Normal. KIDNEYS: Left interpolar postsurgical resection changes. No evidence of recurrent renal mass. Bilater al renal cysts and too small to characterize hypodense lesions redemonstrated. No hydronephrosis or p roximal hydroureter. BOWEL: No obstruction or thickening. PERITONEUM: No pneumoperitoneum. No free fluid. LYMPH NODES: No lymphadenopathy. VASCULATURE: No abdominal aortic aneurysm. MUSCULOSKELETAL: No aggressive osseous destructive lesions. Degenerative changes of the spine. IMPRESSION: 1. Postsurgical resection changes of the left interpolar kidney. No evidence of recurrent renal cell carcinoma. No metastatic disease of the abdomen. 2. Several scattered areas of groundglass opacities of the bilateral lungs. There is also a more conf luent somewhat linear 2.1 x 4.1 cm area of groundglass opacity of the left upper lobe apex with bronc hiectasis and/or cystic change. Findings are indeterminate. Infectious, inflammatory, and neoplastic etiologies are included in the differential. Recommend 3 month follow-up CT chest for stability/resol ution. 3. 1.2 cm right hilar adenopathy. Attention on follow-up imaging of the chest.
== END | disposition home or self-care (01) ==
LOC: RADCTMAIN 06:45
PROVIDERS: ATTEND Urology
DX: Z08 Encounter for follow-up examination after completed treatment for malignant neoplasm (principal); R91.8 Other nonspecific abnormal finding of lung field; R59.0 Localized enlarged lymph nodes; Z85.53 Personal history of malignant neoplasm of renal pelvis; Z98.890 Other specified postprocedural states
CPT/HCPCS: 71260; 74160; Q9967

== ENCOUNTER → 2021-01-30 | Outpatient (CLI) | payer MEDICARE, BC ==
[2021-01-30 14:45] LABS: Basophils # (A) 0.04 X 10*3/uL (0.00-0.10); Basophils % (A) 0.6 %; Eosinophils # (A) 0.16 X 10*3/uL (0.04-0.35); Eosinophils % (A) 2.5 %; HCT 39.2 % (39.6-50.0); Lymphocytes # (A) 1.86 X 10*3/uL (0.90-5.00); Lymphocytes % (A) 28.9 %; MCH 30.6 pg (27.0-32.0); MCHC 33.2 g/dL (32.0-37.0); MCV 92.2 fL (80.0-97.0); Mean Platelet Volume 10.2 fL (9.5-12.2); Monocytes % (A) 9.3 %; Neutrophils # (A) 3.75 X 10*3/uL (1.80-7.70); Neutrophils % (A) 58.4 %; Platelet Count 286 X 10*3/uL (140-440); RBC 4.25 X 10*6/uL (4.40-5.60); RDW 12.3 % (11.5-14.5); WBC 6.43 X 10*3/uL (4.50-10.00)
[2021-01-30 18:52] LABS: Ferritin 155.2 ng/mL (22.0-322.0); T4, Free (Free Thyroxine) 1.3 ng/dL (0.80-1.80)
[2021-01-30 19:12] LABS: % Iron Saturation 19.75 (15.00-50.00); African American GFR (CKD) 64.5 (60.0-200.0); Albumin 4.5 g/dL (3.80-4.90); Albumin/Globulin Ratio 2.37 (1.60-3.17); Anion Gap 10.3 mmol/L (4.00-12.00); BUN/Creat Ratio 11.54 Ratio (12.00-20.00); Calcium 9.6 mg/dL (8.7-10.3); Carbon Dioxide 28.7 mmol/L (21.6-31.8); Chol/HDL Ratio 3.44; Globulin 1.9 g/dL (1.6-3.3); LDL Cholesterol,Calculated 90.2 mg/dL (0.0-131.0); Magnesium 1.8 mg/dL (1.5-2.4); Non-African American GFR(CKD) 55.7 (60.0-200.0); Phosphorus 3.3 mg/dL (2.4-5.1); Potassium 3.6 mmol/L (3.5-5.5); Total Bilirubin 0.7 mg/dL (0.2-1.2); Total Protein 6.4 g/dL (6.2-8.2); Uric Acid 7.1 mg/dL (3.7-8.7); VLDL Calculation 19.8 mg/dL (5.00-40.00)
== END | disposition home or self-care (01) ==
LOC: LABWHC1 08:34
PROVIDERS: ATTEND Nurse Practitioner Adult Health
DX: E11.22 Type 2 diabetes mellitus with diabetic chronic kidney disease (principal); N18.2 Chronic kidney disease, stage 2 (mild); E78.5 Hyperlipidemia, unspecified
CPT/HCPCS: 36415; 80053; 80061; 82550; 82728; 83540; 83550; 83735; 84100; 84439; 84443; 84550; 85025

== ENCOUNTER → 2021-03-10 | Outpatient (CLI) | payer MEDICARE, BC ==
[2021-03-10 09:19] LABS: Albumin 4.5 g/dL (3.5-5.0); Calcium 9.5 mg/dL (8.4-10.2); Potassium 3.8 mmol/L (3.5-5.1); Total Bilirubin 0.9 mg/dL (0.2-1.3); Total Protein 7.3 g/dL (6.3-8.2)
--- NOTE | 2021-03-10 12:18 | CT ---
EXAMINATION TYPE: CT chest abdomen wo/w con DATE OF EXAM: 03/10/2021 COMPARISON: CT chest and abdomen August 16, 2020 and older studies HISTORY: Renal CA CT DLP: 1617.20 mGycm. Automated Exposure Control for Dose Reduction was Utilized. CONTRAST: CT scan of the thorax and abdomen are performed with oral and without and with IV Contrast, patient i njected with 100ml mL of Isovue 300. FINDINGS: LUNGS: There is persistent 4.2 x 2.0 cm left upper lung elongated groundglass focus axial image 13 se juan 7 unchanged from prior study. Smaller 11 x 7 mm peripheral focus in the right upper lobe axial i mage 15 also redemonstrated. Stable 6 mm groundglass focus right lower lobe axial image 41. No new so lid or groundglass nodules. No pleural effusion or pneumothorax seen. MEDIASTINUM: There are no greater than 1 cm hilar or mediastinal lymph nodes. No cardiomegaly or pe ricardial effusion is seen. Coronary artery calcification and/or stents are present. LIVER/GB: No significant abnormality is appreciated. PANCREAS: No significant abnormality is seen. SPLEEN: No significant abnormality is seen. ADRENALS: No significant abnormality is seen. KIDNEYS: Symmetric cortical medullary uptake and excretion without hydronephrosis seen bilaterally. S ubcentimeter hypodense lesions lower pole both kidneys coronal image 51 series 12 are consistent with simple thin-walled cyst, smaller additional lesions lower pole of the right kidney noted on series 8 . There is exophytic 1.3 cm thin-walled cyst posteriorly upper pole of the left kidney series 8 image 24. No new concerning solid or cystic renal mass. Scar tissue laterally left kidney midpole level re demonstrated. Accessory left renal artery incidentally noted. BOWEL: Oral contrast reaches level of the distal transverse colon no suspicious small or large bowel dilatation is seen. Mild/moderate wall thickening in the stomach is present reflect a diffuse gastrit is. Few scattered diverticula throughout the colon are seen. LYMPH NODES: No new greater than 1cm abdominal lymph nodes are appreciated. OSSEOUS STRUCTURES: Multilevel spurring of the spine. Exaggerated cervical curvature. OTHER: No significant additional abnormality is seen. IMPRESSION: No suspicious new mass or adenopathy to suggest neoplastic recurrence. Stable nonspecifi c groundglass opacities, no new or enlarging nodules or masses. Presence of stability suggests postin flammatory etiology or scarring.
== END | disposition home or self-care (01) ==
LOC: RADCTMAIN 08:25
PROVIDERS: ATTEND Urology
DX: C64.9 Malignant neoplasm of unspecified kidney, except renal pelvis (principal); R91.8 Other nonspecific abnormal finding of lung field
CPT/HCPCS: 80053; 71270; 74170; 36415; Q9967

== ENCOUNTER → 2021-06-06 | Outpatient (CLI) | payer MEDICARE, BC ==
[2021-06-06 14:58] LABS: Basophils # (A) 0.05 X 10*3/uL (0.00-0.10); Basophils % (A) 0.6 %; Eosinophils # (A) 0.33 X 10*3/uL (0.04-0.35); Eosinophils % (A) 4.1 %; HCT 42.3 % (39.6-50.0); Lymphocytes # (A) 1.83 X 10*3/uL (0.90-5.00); Lymphocytes % (A) 22.6 %; MCH 30.4 pg (27.0-32.0); MCHC 33.1 g/dL (32.0-37.0); MCV 91.8 fL (80.0-97.0); Mean Platelet Volume 10.2 fL (9.5-12.2); Monocytes # (A) 0.73 X 10*3/uL (0.20-1.00); Neutrophils # (A) 5.12 X 10*3/uL (1.80-7.70); Neutrophils % (A) 63.3 %; Platelet Count 282 X 10*3/uL (140-440); RBC 4.61 X 10*6/uL (4.40-5.60); RDW 12.2 % (11.5-14.5); WBC 8.09 X 10*3/uL (4.50-10.00)
[2021-06-06 19:59] LABS: T4, Free (Free Thyroxine) 1.4 ng/dL (0.80-1.80)
[2021-06-06 20:26] LABS: African American GFR (CKD) 70.6 (60.0-200.0); Albumin 4.8 g/dL (3.80-4.90); Albumin/Globulin Ratio 1.85 (1.60-3.17); Anion Gap 12.8 mmol/L (4.00-12.00); Calcium 10.4 mg/dL (8.7-10.3); Carbon Dioxide 28.2 mmol/L (21.6-31.8); Chol/HDL Ratio 3.71; Globulin 2.6 g/dL (1.6-3.3); Non-African American GFR(CKD) 60.9 (60.0-200.0); Potassium 3.6 mmol/L (3.5-5.5); Total Bilirubin 0.9 mg/dL (0.3-1.2); Total Protein 7.4 g/dL (6.2-8.2); Uric Acid 8.7 mg/dL (3.7-8.7)
== END | disposition home or self-care (01) ==
LOC: LABWHC1 08:25
PROVIDERS: ATTEND Internal Medicine Cardiovascular Disease
DX: I12.9 Hypertensive chronic kidney disease with stage 1 through stage 4 chronic kidney disease, or unspecified chronic kidney disease (principal); N18.2 Chronic kidney disease, stage 2 (mild); E78.2 Mixed hyperlipidemia
CPT/HCPCS: 36415; 80053; 80061; 82550; 84439; 84443; 84550; 85025

== ENCOUNTER → 2021-09-10 | Outpatient (CLI) | payer MEDICARE, BC ==
--- NOTE | 2021-09-11 08:41 | US ---
EXAMINATION TYPE: US prostate transrectal DATE OF EXAM: 09/10/2021 COMPARISON: NONE CLINICAL HISTORY: R97.20 elevated psa levels. Elevated PSA This examination was performed using the transrectal probe. EXAM MEASUREMENTS: Gland Size: 5.1 x 2.9 x 5.2 cm Volume: 40.8 Predicted PSA: 4.9 Actual PSA (if available):Not available at time of exam Peripheral zone appeared slightly heterogeneous, however no definite mass was visualized- cyst visual ized right mid= 0.5 x 0.4 x 0.4 cm/ Central zone appeared heterogeneous Initial images show normal-appearing seminal vesicle. Prostate gland is heterogeneous in appearance a nd enlarged in size. Incidental 4 mm thin-walled cyst in the periphery of the right prostate mid zone . No suspicious focal hypoechoic nodules. IMPRESSION: As above. Predicted PSA = volume x 0.12 ng/ml Calculated Volume = 0.5236 x L x W x H
== END | disposition home or self-care (01) ==
LOC: RADUSWWP 10:14
PROVIDERS: ATTEND Family Medicine
DX: N40.0 Benign prostatic hyperplasia without lower urinary tract symptoms (principal)
CPT/HCPCS: 76872

== ENCOUNTER → 2022-04-16 | Outpatient (CLI) | payer MEDICARE, BC ==
[2022-04-16 14:56] LABS: Basophils # (A) 0.06 X 10*3/uL (0.00-0.10); Basophils % (A) 0.9 %; Eosinophils # (A) 0.16 X 10*3/uL (0.04-0.35); Eosinophils % (A) 2.3 %; HCT 43.2 % (39.6-50.0); HGB 14.2 g/dL (13.0-17.0); Immature Grans, Automated 0.1 %; Lymphocytes % (A) 25.8 %; MCH 30.5 pg (27.0-32.0); MCHC 32.9 g/dL (32.0-37.0); MCV 92.7 fL (80.0-97.0); Mean Platelet Volume 10.6 fL (9.5-12.2); Monocytes % (A) 8.6 %; NRBC Per 100 WBC 0 /100 WBCS (0.0-0.0); Neutrophils # (A) 4.34 X 10*3/uL (1.80-7.70); Neutrophils % (A) 62.3 %; Platelet Count 288 X 10*3/uL (140-440); RBC 4.66 X 10*6/uL (4.40-5.60); RDW 12.4 % (11.5-14.5); WBC 6.97 X 10*3/uL (4.50-10.00)
[2022-04-16 15:18] LABS: ALT 33 U/L (10-49); AST 25 U/L (14-35); African American GFR (CKD) 53.9 (60.0-200.0); Albumin 4.9 g/dL (3.8-4.9); Albumin/Globulin Ratio 2.11 (1.60-3.17); Alkaline Phosphatase 79 U/L (41-126); BUN/Creat Ratio 12.07 Ratio (12.00-20.00); Blood Urea Nitrogen 18.1 mg/dL (9.0-27.0); Calcium 9.9 mg/dL (8.7-10.3); Carbon Dioxide 28.2 mmol/L (20.0-27.5); Chloride 99 mmol/L (96-109); Chol/HDL Ratio 3.88 Ratio; Creatine Kinase 165 U/L (35-257); Globulin 2.3 g/dL (1.6-3.3); Glucose 126 mg/dL (70-110); LDL Cholesterol,Calculated 111.4 mg/dL (0.0-131.0); Non-African American GFR(CKD) 46.5 (60.0-200.0); Potassium 3.6 mmol/L (3.5-5.5); Sodium 139 mmol/L (135-145); Total Protein 7.2 g/dL (6.2-8.2); Uric Acid 8.6 mg/dL (3.7-8.7)
== END | disposition home or self-care (01) ==
LOC: LABWHC1 08:41
PROVIDERS: ATTEND Family Medicine
DX: E78.5 Hyperlipidemia, unspecified (principal); M10.9 Gout, unspecified
CPT/HCPCS: 36415; 80053; 80061; 82550; 83036; 84550; 85025

== ENCOUNTER → 2022-10-14 | Outpatient (CLI) | payer MEDICARE | END | disposition home or self-care (01) | LOC: LABWHC1 07:18 | PROVIDERS: ATTEND Urology | DX: R97.20 Elevated prostate specific antigen [PSA] (principal) | CPT/HCPCS: 36415; 84153 ==

== ENCOUNTER → 2022-11-26 | Outpatient (CLI) | payer MEDICARE ==
[2022-11-26 16:15] LABS: African American GFR (CKD) 58.7 (60.0-200.0); Albumin 4.9 g/dL (3.8-4.9); Albumin/Globulin Ratio 2.07 (1.60-3.17); Anion Gap 12.3 mmol/L (10.00-18.00); BUN/Creat Ratio 10.14 Ratio (12.00-20.00); Blood Urea Nitrogen 14.1 mg/dL (9.0-27.0); Calcium 9.9 mg/dL (8.7-10.3); Carbon Dioxide 29.1 mmol/L (20.0-27.5); Globulin 2.4 g/dL (1.6-3.3); Non-African American GFR(CKD) 50.6 (60.0-200.0); Potassium 3.4 mmol/L (3.5-5.5); Total Bilirubin 0.6 mg/dL (0.30-1.20); Total Protein 7.3 g/dL (6.2-8.2)
== END | disposition home or self-care (01) ==
LOC: LABWHC1 10:13
PROVIDERS: ATTEND Urology
DX: C64.2 Malignant neoplasm of left kidney, except renal pelvis (principal)
CPT/HCPCS: 36415; 80053

== ENCOUNTER → 2022-12-04 | Outpatient (CLI) | payer MEDICARE ==
--- NOTE | 2022-12-04 12:33 | CT ---
EXAMINATION TYPE: CT chest abdomen wo/w con DATE OF EXAM: 12/04/2022 COMPARISON: Prior CT March 10, 2021 and older studies HISTORY: Follow up for renal cancer. CT DLP: 1473 mGycm. Automated Exposure Control for Dose Reduction was Utilized. CONTRAST: CT scan of the thorax and abdomen are performed with oral and without and with IV Contrast, patient i njected with 70ml mL of Isovue 300. FINDINGS: LUNGS: There is persistent 4.1 x 2.2 cm left upper lung elongated groundglass focus axial image r11 series 7 unchanged from prior study. Smaller 9 mm peripheral focus in the right upper lobe axial imag e 14 also stable from prior. Stable 6 mm groundglass focus right lower lobe axial image [address] udy. No new solid or groundglass nodules. No pleural effusion or pneumothorax seen. MEDIASTINUM: There are no greater than 1 cm hilar or mediastinal lymph nodes. No cardiomegaly or pe ricardial effusion is seen. Coronary artery calcification and/or stents are redemonstrated. LIVER/GB: No significant abnormality is appreciated. PANCREAS: No significant abnormality is seen. SPLEEN: No significant abnormality is seen. ADRENALS: No significant abnormality is seen. KIDNEYS: Symmetric cortical medullary uptake and excretion without hydronephrosis seen bilaterally. S ubcentimeter hypodense lesions lower pole both kidneys axial image 36 series 10 are consistent with s imple thin-walled cysts. There is exophytic 1.3 cm thin-walled cyst posteriorly upper pole of the lef t kidney series 10 image 23. There is linear density along the lateral aspect mid pole level left kid mike from prior treatment with adjacent exophytic round 2.7 cm fat density lesion possible angiomyolip amira axial image 68 series 3. Accessory left renal artery redemonstrated. Simple appearing 1.0 cm thin -walled cyst upper pole right kidney axial image 23 series 10. No concerning new or solid or cystic m ass in either kidney. BOWEL: Oral contrast reaches level of the proximal transverse colon. No suspicious small or large bow el dilatation is seen. Mild/moderate wall thickening in the stomach is redemonstrated code reflect pr oduct of a diffuse gastritis. Few scattered diverticula throughout the colon are redemonstrated. LYMPH NODES: No new greater than 1cm abdominal lymph nodes are appreciated. OSSEOUS STRUCTURES: Multilevel spurring of the spine. Exaggerated cervical curvature. OTHER: No significant additional abnormality is seen. IMPRESSION: No suspicious new mass or adenopathy to suggest neoplastic recurrence. Stable nonspecifi c groundglass opacities, no new or enlarging nodules or masses.
== END | disposition home or self-care (01) ==
LOC: RADCTMAIN 10:29
PROVIDERS: ATTEND Urology
DX: C64.2 Malignant neoplasm of left kidney, except renal pelvis (principal)
CPT/HCPCS: 82565; 84520; 71270; 74170; 36415; Q9967

== ENCOUNTER → 2023-02-08 | Outpatient (CLI) | payer MEDICARE ==
[2023-02-08 10:51] LABS: ALT 38 U/L (10-49); AST 32 U/L (14-35); Chol/HDL Ratio 3.82 Ratio; LDL Cholesterol,Calculated 107.9 mg/dL (0.0-131.0); VLDL Calculation 17.58 mg/dL (5.00-40.00)
== END | disposition home or self-care (01) ==
LOC: LABWHC1 07:28
PROVIDERS: ATTEND Internal Medicine Cardiovascular Disease
DX: E78.2 Mixed hyperlipidemia (principal); R97.20 Elevated prostate specific antigen [PSA]
CPT/HCPCS: 36415; 80061; 84153; 84450; 84460

== ENCOUNTER → 2023-07-23 | Outpatient (CLI) | payer MEDICARE | END | disposition home or self-care (01) | LOC: LABWHC1 11:03 | PROVIDERS: ATTEND Urology | DX: R97.20 Elevated prostate specific antigen [PSA] (principal) | CPT/HCPCS: 36415; 84153; 84154 ==

== ENCOUNTER → 2024-01-31 | Outpatient (CLI) | payer MEDICARE | END | disposition home or self-care (01) | LOC: LABWHC1 07:12 | PROVIDERS: ATTEND Urology | DX: R97.20 Elevated prostate specific antigen [PSA] (principal) | CPT/HCPCS: 36415; 84153 ==

== ENCOUNTER → 2024-03-17 | Outpatient (CLI) | payer MEDICARE ==
[2024-03-17 10:41] LABS: Basophils # (A) 0.04 X 10*3/uL (0.00-0.10); Basophils % (A) 0.6 %; Eosinophils # (A) 0.13 X 10*3/uL (0.04-0.35); Eosinophils % (A) 1.8 %; HCT 41.7 % (39.6-50.0); HGB 14.2 g/dL (13.0-17.0); Lymphocytes # (A) 1.76 X 10*3/uL (0.90-5.00); MCH 30.3 pg (27.0-32.0); MCHC 34.1 g/dL (32.0-37.0); MCV 89.1 FL (80.0-97.0); Monocytes % (A) 9.9 %; NRBC Per 100 WBC 0 X 10*3/uL (0.00-0.01); Neutrophils % (A) 62.6 %; Platelet Count 283 X 10*3/uL (140-440); RBC 4.68 X 10*6/uL (4.40-5.60); RDW 12.1 % (11.5-14.5); WBC 7.04 X 10*3/uL (4.50-10.00)
[2024-03-17 11:10] LABS: ALT 34 U/L (10-49); AST 30 U/L (14-35); Albumin 4.8 g/dL (3.8-4.9); Alkaline Phosphatase 81 U/L (41-126); BUN/Creat Ratio 9.29 Ratio (12.00-20.00); Calcium 10.3 mg/dL (8.7-10.3); Carbon Dioxide 26.8 mmol/L (21.6-31.8); Chloride 101 mmol/L (96-109); Chol/HDL Ratio 2.84 Ratio; Creatine Kinase 191 U/L (35-257); Globulin 2.4 g/dL (1.6-3.3); Glucose 129 mg/dL (70-110); LDL Cholesterol,Calculated 68.5 mg/dL (0.0-131.0); Potassium 4.1 mmol/L (3.5-5.5); Prostate Specific Antigen 6.54 ng/mL (0.000-6.500); Sodium 142 mmol/L (135-145); Total Bilirubin 0.8 mg/dL (0.3-1.2); Total Protein 7.2 g/dL (6.2-8.2); Uric Acid 8.4 mg/dL (3.7-8.7)
== END | disposition home or self-care (01) ==
LOC: LABWHC1 06:54
PROVIDERS: ATTEND Internal Medicine Cardiovascular Disease
DX: E78.2 Mixed hyperlipidemia (principal); M10.9 Gout, unspecified; R97.20 Elevated prostate specific antigen [PSA]
CPT/HCPCS: 36415; 80053; 80061; 82550; 83036; 84153; 84550; 85025

== ENCOUNTER → 2024-08-07 | Outpatient (CLI) | payer MEDICARE | END | disposition home or self-care (01) | LOC: LABWHC1 06:55 | PROVIDERS: ATTEND Urology | DX: R97.20 Elevated prostate specific antigen [PSA] (principal) | CPT/HCPCS: 36415; 84153; 84154 ==

== ENCOUNTER → 2024-09-04 | Outpatient (CLI) | payer MEDICARE ==
[2024-09-04 10:23] LABS: Basophils # (A) 0.07 X 10*3/uL (0.00-0.10); Basophils % (A) 0.8 %; Eosinophils # (A) 0.26 X 10*3/uL (0.04-0.35); Eosinophils % (A) 3.1 %; HCT 42.6 % (39.6-50.0); HGB 14.1 g/dL (13.0-17.0); Lymphocytes # (A) 2.31 X 10*3/uL (0.90-5.00); Lymphocytes % (A) 27.9 %; MCH 29.8 pg (27.0-32.0); MCHC 33.1 g/dL (32.0-37.0); MCV 90.1 FL (80.0-97.0); Mean Platelet Volume 10.2 FL (9.5-12.2); Monocytes # (A) 0.73 X 10*3/uL (0.20-1.00); Monocytes % (A) 8.8 %; NRBC Per 100 WBC 0 X 10*3/uL (0.00-0.01); Neutrophils # (A) 4.87 X 10*3/uL (1.80-7.70); Platelet Count 303 X 10*3/uL (140-440); RBC 4.73 X 10*6/uL (4.40-5.60); WBC 8.27 X 10*3/uL (4.50-10.00)
[2024-09-04 10:30] LABS: ALT 27 U/L (10-49); AST 28 U/L (14-35); Albumin 4.7 g/dL (3.8-4.9); Albumin/Globulin Ratio 2.14 Ratio (1.60-3.17); Alkaline Phosphatase 84 U/L (41-126); BUN/Creat Ratio 8.64 Ratio (12.00-20.00); Blood Urea Nitrogen 12.1 mg/dL (9.0-27.0); Calcium 9.4 mg/dL (8.7-10.3); Carbon Dioxide 28.1 mmol/L (21.6-31.8); Chloride 101 mmol/L (96-109); Chol/HDL Ratio 2.76 Ratio; Creatine Kinase 163 U/L (35-257); Globulin 2.2 g/dL (1.6-3.3); Glucose 129 mg/dL (70-110); LDL Cholesterol,Calculated 70.5 mg/dL (0.0-131.0); Potassium 3.7 mmol/L (3.5-5.5); Sodium 140 mmol/L (135-145); Total Bilirubin 0.5 mg/dL (0.3-1.2); Total Protein 6.9 g/dL (6.2-8.2); Uric Acid 7.6 mg/dL (3.7-8.7); VLDL Calculation 13.58 mg/dL (5.00-40.00)
== END | disposition home or self-care (01) ==
LOC: LABWHC1 08:01
PROVIDERS: ATTEND Family Medicine
CPT/HCPCS: 36415; 80053; 80061; 82550; 83036; 84550; 85025

== ENCOUNTER → 2024-10-02 | Outpatient (CLI) | payer MEDICARE ==
--- NOTE | 2024-10-02 10:37 | MR ---
EXAMINATION TYPE: MR Prostate wo/w con DATE OF EXAM: 10/02/2024 8:04 AM COMPARISON: None. CLINICAL INDICATION: Male, 74 years old with history of R97.20 ELEVATED PROSTATE SPECIFIC ANTIGEN [PS A]; Elevated PSA. TECHNIQUE: Multi-planar, multi-sequence imaging of the pelvis is performed prior to and following the uncomplicated administration of bolus intravenous gadolinium. IV Contrast: 9 mL Gadobutrol Interpretive Criteria: PI-RADS v2.1 SERUM PSA: 09-01-24 = 8.39 08-07-24 = 9.1 SURGICAL PATHOLOGY: 11/24/2021, benign FINDINGS: Prostatic dimensions: 5.2 x 6.0 x 4.3 cm Ellipsoid Volume: 70.25 (PSA density=0.12 ng/mL/mL) CENTRAL GLAND (Central and Transition Zones/CZ+TZ): Multiple bilateral, heterogenous appearing hypertrophic stromal nodules, without suspicious lesion. M edian lobe hypertrophy with protrusion into the base of the bladder. (PI-RADS 2) PERIPHERAL ZONE (PZ): Limited evaluation due to gas in the rectum. Bilateral linear, indistinct wedgelike areas of low ADC, and low T2 signal, No evidence of masslike abnormality, or localized perfusional hypervascularity, t o further suggest a focus of clinically significant prostate cancer. (PI-RADS 2) SEMINAL VESICLES (SV): Symmetric and unremarkable. PERIPROSTATIC TISSUES: Unremarkable. LYMPH NODES: No enlarged pelvic lymph node. REMAINING PELVIS: Bladder wall is within normal limits given distention. No abnormal free or organized intrapelvic fluid collection. No pathologic bowel dilation or mural thickening. Colonic diverticula are present. Right fat containing inguinal hernia OSSEOUS STRUCTURES: No suspicious osseous abnormality. IMPRESSION: 1. No specific features for high-risk prostate cancer. Maximum PI-RADS score: 2. 2. Moderate BPH, estimated gland volume 70.25 mL. 3. No suspicious osseous lesion. No lymphadenopathy. No evidence of prostate adenocarcinoma involving the periprostatic tissues. [facility], , 10/02/2024 10:35 AM
== END | disposition home or self-care (01) ==
LOC: RADMRIMAIN 06:54
PROVIDERS: ATTEND Urology
DX: N40.0 Benign prostatic hyperplasia without lower urinary tract symptoms (principal); R97.20 Elevated prostate specific antigen [PSA]
CPT/HCPCS: 72197; A9585

== ENCOUNTER → 2025-02-16 | Outpatient (CLI) | payer MEDICARE | END | disposition home or self-care (01) | LOC: LABWHC1 07:40 | PROVIDERS: ATTEND Urology | DX: R97.20 Elevated prostate specific antigen [PSA] (principal) | CPT/HCPCS: 36415; 84153 ==